=== PATIENT | female | born 1990 | race African-American/Black ===

== ENCOUNTER 2025-01-31 18:41 | Emergency (ER) | payer MEDICAID ==
[~2025-01-31] VITALS: Ht 172.7 cm; Wt 85.0 kg
[2025-01-31 18:44] VITALS: O2SAT 99
[2025-01-31] MEDS ORDERED: HYDROXYZINE 25MG TABLET PO ONE (21:00)
[2025-01-31] MEDS ORDERED: LORA10TA7 MT (21:04)
[2025-01-31] MEDS ORDERED: HYDR10TA34 MT (21:04)
[2025-01-31 21:22] VITALS: BP 107/83; PULSE 73; RESP 16; TEMP 36.7; O2SAT 99
== END 2025-01-31 21:26 | disposition home or self-care (01) ==
LOC: ER 18:41
DX: H10.13 Acute atopic conjunctivitis, bilateral (principal)
CPT/HCPCS: 99283